=== PATIENT | male | born 1945 | race Caucasian/White ===

== ENCOUNTER → 2016-10-25 | Outpatient (CLI) | payer BLACK LUNG, OTHER ==
[~2016-10-25] MED LIST: AMITRIPTYLINE100 MG PO; ASPIRIN EC81 MG PO; CATAPRES 0.1MG0.1 MG PO; CORDARONE 200M200 MG PO; COREG3.125 MG PO; ELIQUIS 5 MG TAB5 MG PO; FLEXERIL 10 MG10 MG PO; GLUCOPHAGE 500500 MG PO; IRON236 MG PO; JANUVIA100 MG PO; LASIX20 MG PO; SPIRIVA18 MCG INH; SPIRONOLACTONE25 MG PO; SYMBICORT 160-1 INHA INH; TENORMIN 25 MG25 MG PO; VENTOLIN/PROVE0.5 ML INH; ZESTRIL20 MG PO; ZOCOR20 MG PO
== END ==
LOC: CT 10:54
DX: Z87.891 Personal history of nicotine dependence (principal); N20.0 Calculus of kidney; R91.8 Other nonspecific abnormal finding of lung field
CPT/HCPCS: G0297

== ENCOUNTER → 2021-02-01 | Outpatient (CLI) | payer OTHER, BLACK LUNG ==
[~2021-02-01] MED LIST changes: +VIBRAMYCIN100 MG PO
== END ==
LOC: KOH-I 13:11
DX: Z87.891 Personal history of nicotine dependence (principal); R91.8 Other nonspecific abnormal finding of lung field
CPT/HCPCS: 71271

== ENCOUNTER → 2022-02-06 | Outpatient (CLI) | payer OTHER | LOC: KOH-I 14:00 | DX: F17.210 Nicotine dependence, cigarettes, uncomplicated (principal) | CPT/HCPCS: 71271 ==